=== PATIENT | male | born 1945 | race Caucasian/White ===

== ENCOUNTER 2017-02-21 23:41 | Observation (INO) | payer BC ==
--- NOTE | ~2017-02-21 | HP ---
History And Physical [place] [id number] [facility] [place]. [address] NAME: KEE SAENZ : 43 STATUS : ADM Silas PAT#: [id number] AGE: 72 ADM/REG DATE : 02/21/17 MR#: [id number] REPORT SERV DATE: 02/22/17 DICTATED BY: JULIANNA BARROSO DATE: 02/22/17 REPORT STATUS : Draft TRANSCRIBED BY: MODCarmine DATE: 02/22/17 DATE OF ADMISSION: 02/21/2017 OBSTETRICAL ANESTHESIOLOGIST: Ervin Salinas M.D. VASCULAR: Dr. Suggs and Pasquale. CHIEF COMPLAINT: Atypical chest pain, dissimilar to previous cardiac events. HISTORY OF PRESENT ILLNESS: A very pleasant 72-year-old white gentleman with known history of CAD, status post anterior wall NC with stent to the LAD in 2004 with identified ischemic cardiomyopathy thereafter, most recently EF of 20% by echo. The patient states that on February 21 around 2200 hours, he had been working in the yard without incident, came into the house, drink an Oreo milkshake and developed a "sharp pain" in his mid chest, thought initially to be indigestion and reportedly dissimilar previous cardiac event. He took one nitroglycerin which he thought was old which eased his discomfort but did not relieve it. He denies any shortness of breath, nausea, diaphoresis, dizziness, or belching. At its most intense, he rated the chest discomfort a 6/10. At the time of interview in the [facility], he rates it a 2/10. EMS was called, and they provided two additional nitroglycerin with relief of his symptoms. The patient states that his chest pain lasted approximately an hour in duration. The patient and daughter who is present at bedside confirm a personal history of one heart attack in 2004, a history of stroke. Denies history of PE or DVT. The patient denies any recent fever or chills, no palpitations, and no shocks delivered from his AICD. No syncopal events, and denies PND or orthopnea. Daughter reports most recent interrogation on 12/12/2016 per report with no changes made. On review of strips during transport with EMS, the patient appears to have been in atrial fibrillation with RVR during transport, now converted to sinus rhythm. PAST MEDICAL HISTORY: 1. CAD. a. Status post AWMI with stent to LAD in 2004. b. ICM, EF 20% by echo in 2014. c. AICD in 2014. d. AAA endo graft, followed by Es and/or Pasquale on an annual basis. e. TAD with iliac stents, followed by Dr. Suggs. 2. Hypertension. 3. Dyslipidemia. 4. Denies diabetes. 5. COPD. 6. History of ischemic bowel, status post resection. 7. PAF, on Xarelto and a beta-kerry. 8. Ongoing tobacco abuse. 9. Positive family history for early CAD. 10.Denies kidney disease. History And Physical [address] [place]. [address] NAME: KEE SAENZ : 43 STATUS : ADM Silas PAT#: [id number] AGE: 72 ADM/REG DATE : 02/21/17 MR#: [id number] REPORT SERV DATE: 02/22/17 DICTATED BY: JULIANNA BARROSO DATE: 02/22/17 REPORT STATUS : Draft TRANSCRIBED BY: ALVARO DATE: 02/22/17 PAST SURGICAL HISTORY: 1. Partial colectomy secondary to ischemic bowel. 2. AICD 2013 ([place]). SOCIAL HISTORY: He is with three children. Retired, does not exercise but is active around his property. Continues to smoke a half pack per day. Has smoked as much as one and half packs per day for the past 50 years. Denies alcohol or illicits. FAMILY HISTORY: Mother of a brain tumor. Father with heart attack and multiple TIAs, at 67. Four brothers with early CAD, one in his 40s of a heart attack. The patient is one of 12 siblings. REVIEW OF SYSTEMS: A 14-point review of systems performed, significant for HPI. No other contributory diagnoses identified. ALLERGIES: TO SULFA, HIVES. HOME MEDICATIONS: Aspirin 325 nightly, Coreg 6.25 twice daily, enalapril 10 mg daily, Lasix 20 mg daily, lovastatin 40 mg twice daily, potassium 20 mEq daily, Xarelto 20 mg nightly. PHYSICAL EXAMINATION: VITAL SIGNS: Bilateral blood pressures on arrival, right 144/79, left 143/73, this morning 150/82; pulse 67; respirations 22; temperature 98; O2 saturation 98% on room air. Height 5 feet 8 inches, weight 137 pounds, BMI 21. GENERAL: Cooperative, in no apparent distress. HEENT: Pupils 2 mm, sclera nonicteric. Nares patent. Moist mucous membranes. No xanthelasma. NECK: Trachea midline, no thyromegaly. No JVD. No bruits. LYMPH: No cervical lymphadenopathy. No supraclavicular lymphadenopathy. RESPIRATORY: Unlabored respirations. Rhonchi and wheeze bilaterally. CARDIOVASCULAR: Regular rate. No murmur, rub or gallop appreciated. Extremities without edema. Pulses 2+ bilaterally. ABDOMEN: Soft, nontender, nondistended, normal bowel sounds auscultated throughout. No organomegaly. SKIN: Warm, dry extremities. No pallor, or cyanosis. PSYCHIATRIC: Appropriate affect. Alert, oriented x3. LABORATORY DATA: Troponin 0.03, 0.05, 0.05. Potassium 4.2 (previously 3.3), BUN 16, creatinine 1.17, glucose 140 magnesium 2.2 (previously 1.4). WBC 7.2, hemoglobin 13.1, hematocrit 38.6, and platelet count 203,000. EKG: Sinus rhythm, PRWP, lateral T-waves (atrial fibrillation with RVR during EMS transport, now sinus rhythm). Echo, 01/2014: Severe LV dysfunction, anteroseptal apical HK. Moderate LVH. No significant change since 11/2013 with EF of 20% at that time. MPI, 01/2013: Large fixed anteroseptal apical defect, EF 36%. No ischemia. History And Physical [address] [address] NAME: KEE SAENZ : 43 STATUS : ADM Silas PAT#: [id number] AGE: 72 ADM/REG DATE : 02/21/17 MR#: [id number] REPORT SERV DATE: 02/22/17 DICTATED BY: JULIANNA BARROSO DATE: 02/22/17 REPORT STATUS : Draft TRANSCRIBED BY: ALVARO DATE: 02/22/17 ASSESSMENT AND PLAN: 1. Chest pain with dissimilar presentation to previous cardiac events. The patient appears to have been in PAF during transport, now sinus rhythm. The patient has been observed in the [facility] overnight to rule out myocardial infarction with three flat troponins of 0.03, 0.05, and 0.05. We will check a D-dimer, n.p.o. for MPI today. Home if negative study or unchanged. If anything suggestive of a new ischemia, a Cardiology consult will be initiated. Otherwise, the patient will be asked to follow up with PCP and Cardiology as appropriate. 2. Coronary artery disease with ischemic cardiomyopathy, EF of 20%. Continue home medications. The patient reports no shocks delivered from his AICD. 3. Hypertension. Monitor blood pressure and continue home medications. 4. Dyslipidemia. Continue statin. 5. Chronic obstructive pulmonary disease with audible rhonchi and wheeze on exam. Albuterol, DuoNeb treatment q.6 hours. First treatment now. Reports cough times for the past three weeks. Denies fever, chills. White count 7.2. 6. Ongoing tobacco abuse. Counseled strongly regarding cessation for cardiovascular health and well-being. SOWMYA/ALVARO Julianna Barroso, MSN, MEDICAID [employer]-BC / [id number] CC: Julianna Barroso, MSN, MEDICA[employer]-BC Raisa Wallis M.D.
[~2017-02-21 23:41] MED LIST: ACET500CAP PO; ASABAYER PO; BISR PR; BIST PO; C1 PO; COREG6 PO; DSS PO; FLAG500TAB PO; JANTOVEN1 MG; JANTOVEN1 MG OR; JANTOVEN2 MG PO; KDUR20 PO; L20 PO; L40 PO; LOVENOX60 SC; MEVACOR40 MG PO; OMNICEF300 PO; PROTONIX PO; VASOTEC10 PO
[2017-02-22 00:31] LABS: BASOPHILS 0.3 %; BASOPHILS ABSOLUTE 0.02 10/3/uL (0.0-0.16); EOSINOPHILS 4.3 %; EOSINOPHILS ABSOLUTE 0.31 10/3/uL (0.0-0.53); HEMOGLOBIN 13.1 g/dL (13.6-17.8); IMMATURE GRANULOCYTES 0.3 %; IMMATURE GRANULOCYTES ABSOLUTE 0.02 10/3/uL (0.0-0.11); LYMPHOCYTES 23.9 %; LYMPHOCYTES ABSOLUTE 1.71 10/3/uL (0.67-4.30); MEAN CORPUS HGB CONC 33.9 g/dL (32.0-36.0); MEAN CORPUSCULAR HEMOGLOB 32.3 pg (26.0-34.0); MEAN CORPUSCULAR VOLUME 95.3 fL (80-100); MEAN PLATELET VOLUME 9.1 fL (9.2-13.0); MONOCYTES 7.3 %; MONOCYTES ABSOLUTE 0.52 10/3/uL (0.21-1.20); NEUTROPHILS 63.9 %; NEUTROPHILS ABSOLUTE 4.57 10/3/uL (2.02-8.40); PLATELET COUNT 203 10/3/uL (150-400); RBC DISTRIBUTION WIDTH 16.1 % (12.0-16.0); RED CELL COUNT 4.05 10/6/uL (4.7-6.1); WHITE BLOOD CELLS 7.2 10/3/uL (4.5-10.5)
[2017-02-22 00:32] LABS: HEMATOCRIT 38.6 % (40.0-51.0); MANUAL DIFF NO %
[2017-02-22 00:37] LABS: INTERNATIONAL NORMAL RATI 1.1 UNITS (-); PARTIAL THROMBO TIME 27.7 SEC (22.5-37.2); PROTIME (NOT ORD) 14.4 SEC (12.0-14.5)
[2017-02-22 00:47] LABS: CALCIUM, SERUM 8.9 MG/DL (8.5-10.4); CHEST PAIN PROFILE TAT 0 Hrs 22 Mins; CHLORIDE, SERUM 110 MMOL/L (96-112); CO2 (CARBON DIOXIDE) 29 MMOL/L (24-34); CREATININE 1.17 MG/DL (0.70-1.30); GFR AFRICAN AMERICAN 71 ML/MIN (>=60); GFR NON AFRICAN AMERICAN 61 ML/MIN (>=60); SODIUM, SERUM 144 MMOL/L (135-148); TROPONIN I 0.03 NG/ML (<0.05)
[2017-02-22 00:48] LABS: BUN (BLOOD UREA NITROGEN) 16 MG/DL (6-23); GLUCOSE, SERUM 140 MG/DL (60-99); POTASSIUM, SERUM 3.3 MMOL/L (3.5-5.3)
[2017-02-22] MEDS ORDERED: L20 PO (02:24)
[2017-02-22] MEDS ORDERED: XARELTO20 MG PO (02:24)
[2017-02-22] MEDS ORDERED: KDUR20 PO (02:25)
[2017-02-22] MEDS ORDERED: MEVACOR40 MG PO (02:26)
[2017-02-22] MEDS ORDERED: VASOTEC10 PO (02:27)
[2017-02-22] MEDS ORDERED: COREG6 PO (02:27)
[2017-02-22] MEDS ORDERED: ASABAYER PO (02:28)
[2017-02-22 07:38] LABS: POTASSIUM, SERUM 4.2 MMOL/L (3.5-5.3); TROPONIN I 0.05 NG/ML (<0.05)
[2017-02-22] MEDS ORDERED: NITROSTAT0.4 MG SL (17:34)
== END 2017-02-22 19:30 | disposition home or self-care (01) ==
LOC: ER 23:41 → CDU1 23:59
PROVIDERS: Clinical Nurse Specialist; Specialist
DX: R07.9 Chest pain, unspecified (principal); I25.10 Atherosclerotic heart disease of native coronary artery without angina pectoris; I25.2 Old myocardial infarction; I25.5 Ischemic cardiomyopathy; I10 Essential (primary) hypertension; E78.5 Hyperlipidemia, unspecified; E78.00 Pure hypercholesterolemia, unspecified; J44.9 Chronic obstructive pulmonary disease, unspecified; I48.0 Paroxysmal atrial fibrillation; Z98.890 Other specified postprocedural states; F17.210 Nicotine dependence, cigarettes, uncomplicated; Z88.2 Allergy status to sulfonamides; Z88.8 Allergy status to other drugs, medicaments and biological substances; Z79.01 Long term (current) use of anticoagulants; Z79.899 Other long term (current) drug therapy; Z79.82 Long term (current) use of aspirin
CPT/HCPCS: 71010; 71275; 78452; 80048; 83735; 84132; 84484; 85025; 85379; 85610; 85730; 93005; 93017; 94640; 96365; 96366; 96374; 96375; 99291; A9270-GY; A9502; G0378; J0153; J3475; Q9967